=== PATIENT | female | born 1930 | race Caucasian/White ===

== ENCOUNTER 2016-07-25 17:01 | Inpatient (IN) | payer MEDICARE ==
[2016-07-25] MEDS ORDERED: ZOLOFT20 MG/ML PO (17:48)
[2016-07-25] MEDS ORDERED: ZYPREXA2.5 MG PO (17:50)
[2016-07-25] MEDS ORDERED: RIVASTIGMINE6 MG PO (17:51)
[2016-07-25] MEDS ORDERED: VOLTAREN100 GM TOPICAL (17:51)
[2016-07-25] MEDS ORDERED: ACETAMINOPHEN325 MG PO (17:52)
[2016-07-25] MEDS ORDERED: MELATONIN 3 MG1 TAB PO (17:53)
[2016-07-25] MEDS ORDERED: DEPAKOTE SPRIN125 MG PO (17:54)
[2016-07-25] MEDS ORDERED: ASPIRIN81 MG PO (17:54)
[2016-07-25] MEDS ORDERED: CALCIUM 600 +1 EAC3 PO (17:55)
[2016-07-25] MEDS ORDERED: COLACE100 MG PO (17:56)
[2016-07-25] MEDS ORDERED: NAMENDA XR28 MG PO (17:57)
[2016-07-25] MEDS ORDERED: VITAMIN D31000 UNI2 PO (17:57)
[2016-07-25] MEDS ORDERED: ZOFRAN4 MG PO (17:58)
[2016-07-26 06:30] LABS: BASOPHILS 0.4 % (0.0-2.0); EOSINOPHILS 5.8 % (0-7); HEMOGLOBIN 11.8 g/dL (12-16); IMMATURE GRANULOCYTES 0.2 % (0-5); MCH 30.6 pg (26.0-34.0); MCHC 31.1 g/dL (31.0-37.0); MCV 98.7 fL (80.0-100.0); MEAN PLATELET VOLUME 10.8 fL (7.4-10.4); MONOCYTES 7.7 % (2-11); NEUTROPHILS 50.9 % (40-80); PLATELET COUNT 193 10x3/uL (130-400); RBC 3.85 10x6/uL (4.00-5.40); RDW 14.9 % (11.5-14.5); WBC 5.6 10x3/uL (4.8-10.8)
[2016-07-26 06:45] LABS: HEMOGLOBIN A1C 5.4 % (4.8-6.0)
[2016-07-26 06:55] LABS: ALBUMIN 2.9 g/dL (3.4-5.0); ALKALINE PHOSPHATASE 88 U/L (46-116); ALT (SGPT) 12 U/L (10-68); BILIRUBIN - TOTAL 0.43 mg/dL (0.2-1.3); CALC OSMOLALITY 292 mosm/kg (275-300); CALCIUM 8.4 mg/dL (8.5-10.1); CARBON DIOXIDE 30.7 mmol/L (21.0-32.0); CHLORIDE - SERUM 109 mmol/L (98-107); CHOL - HDL RATIO 4.4 ratio (2.3-4.1); CHOLESTEROL, TOTAL 204 mg/dL (0-200); CREATININE - SERUM 0.7 mg/dL (0.6-1.3); GLUCOSE 89 mg/dL (74-106); HDL CHOLESTEROL 46 mg/dL (32-96); LDL CHOLESTEROL 141 mg/dL (0-100); LDL-HDL RATIO 3.1 ratio (1.5-3.5); POTASSIUM - SERUM 3.8 mmol/L (3.5-5.1); PROTEIN - SERUM 7.1 g/dL (6.4-8.2); SODIUM 147 mmol/L (136-145); THYROID STIMULATING HORMONE 4.47 uIU/mL (0.36-3.74); TRIGLYCERIDE 88 mg/dL (30-200); UREA NITROGEN 19 mg/dL (7-18); VALPROIC ACID (DEPAKOTE) 25.8 ug/mL (50.0-100.0); eGFR NON AFRICAN AMERICAN 84 mL/min (90-120)
[2016-07-27 06:16] LABS: RAPID PLASMA REAGIN Non Reactive (Non Reactive)
[2016-07-27 08:17] LABS: APPEARANCE CLEAR (CLEAR); COLOR YELLOW (YELLOW)
[2016-07-27 08:20] LABS: BACTERIA FEW /hpf (NONE SEEN); BILIRUBIN NEGATIVE (NEGATIVE); EPITHELIAL CELLS 0-5 /hpf (0-5); GLUCOSE NEGATIVE (NEGATIVE); KETONE NEGATIVE (NEGATIVE); LEUKOCYTE ESTERASE TRACE (NEGATIVE); NITRITE NEGATIVE (NEGATIVE); PROTEIN NEGATIVE (NEGATIVE); UROBILINOGEN NORMAL (NORMAL); WHITE CELLS - URINE OCC /hpf (0-5)
[2016-07-27 08:21] LABS: FOLATE (FOLIC ACID) - SERUM 15.5 ng/mL (>3.0)
[2016-07-27 08:22] LABS: MUCUS <1+ /lpf (NONE SEEN)
[2016-07-27 11:19] LABS: VITAMIN D 25 HYDROXY 31.9 ng/mL (30.0-100.0)
[2016-08-02] MEDS ORDERED: NAMENDA5 MG PO (13:57)
[2016-08-02] MEDS ORDERED: VITAMIN D5000 UNIT PO (13:57)
[2016-08-02] MEDS ORDERED: TRAZODONE HCL50 MG PO (13:57)
== END 2016-08-03 14:45 | DRG 57 ==
LOC: D.PSYCH 17:01
PROVIDERS: ADMIT Psychiatry & Neurology Psychiatry
DX: G30.1 Alzheimer's disease with late onset (principal); F02.81 Dementia in other diseases classified elsewhere, unspecified severity, with behavioral disturbance; N39.0 Urinary tract infection, site not specified; K21.9 Gastro-esophageal reflux disease without esophagitis; K59.00 Constipation, unspecified; M19.90 Unspecified osteoarthritis, unspecified site; E78.5 Hyperlipidemia, unspecified; E55.9 Vitamin D deficiency, unspecified; F41.8 Other specified anxiety disorders; M81.0 Age-related osteoporosis without current pathological fracture; G47.00 Insomnia, unspecified; B96.20 Unspecified Escherichia coli [E. coli] as the cause of diseases classified elsewhere